=== PATIENT | male | born 1955 | race Caucasian/White ===

== ENCOUNTER 2017-05-15 15:24 | Outpatient (CLI) | payer OTHER ==
--- NOTE | 2017-05-15 16:20 | DIAGNOSTIC IMAGING REPORT ---
PROCEDURE: CT THORAX WITH CONTRAST INDICATION: F/U LUNG NODULES TECHNIQUE: 125 ml of Isovue 300 was injected intravenously and axial images were obtained of the chest with coronal and sagittal reformations. COMPARISON: 05/04/2016 FINDINGS: Stable 4 mm perifissural right middle lobe nodule (series 3 image 31), and a stable 6 mm nodule (image 32) in the right middle lobe just caudal to this. Stable 3 mm lateral subpleural lingular nodule (image 35). Not previously mentioned, but stable, are a subpleural right lower lobe ground-glass nodule measuring about 6 mm (series 3 image 34), and a left midlung fissural node ( image 30 and 31). All nodules continue to have a similar, ground-glass opacity. No new nodules or growth. The thyroid gland is normal. Thoracic aorta is normal caliber. The great vessels demonstrates normal branching pattern. The central pulmonary arteries are normal caliber. Heart size is normal. Minor coronary calcification. No pericardial effusion. No adenopathy or mediastinal masses. The esophagus is normal in caliber without hiatal hernia. The airway is patent and branches normally. The lungs are clear. No pleural effusions or pneumothorax. Osseous structures are intact. The images obtained of the upper abdomen are normal. IMPRESSION: 1. Stable bilateral lung nodules measuring up to 6 mm without solid components. 1-year follow-up to document 2-year stability is recommended.
== END 2017-05-15 23:00 ==
LOC: CT SRH 15:24
DX: R91.1 Solitary pulmonary nodule (principal)